=== PATIENT | female | born 1985 | race Hispanic/Latino ===

== ENCOUNTER 2017-01-24 16:40 | Emergency (ER) | payer OTHER ==
[2017-01-24 16:40] VITALS: BMI 39.9
[2017-01-24 16:57] VITALS: BP 140/84; PULSE 100; RESP 18; TEMP 97.8; O2SAT 99
[2017-01-24] MEDS ORDERED: DiphenhydrAMINE 50 mg/ml Inj IVP STA (17:35)
[2017-01-24] MEDS ORDERED: Sodium Chloride 0.9% 1,000 ML IV STA (17:35)
[2017-01-24] MEDS ORDERED: DiphenhydrAMINE 50 mg/ml Inj ONE (18:10)
[2017-01-24 18:16] LABS: BASO # 0.1 K/uL (0.0-0.2); EOS # 0.1 K/uL (0.0-0.7); EOS % 2.6 % (0.0-4.0); HEMATOCRIT 34.2 % (34.0-47.0); LYMPH # 1.9 K/uL (1.0-4.3); LYMPH % 33.5 % (20.0-40.0); MEAN CELL VOLUME 91.6 fl (81.0-99.0); MEAN CORPUSCULAR HEMOGLOBIN 30.3 pg (27.0-31.0); MEAN CORPUSCULAR HGB CONC 33.1 g/dL (33.0-37.0); MEAN PLATELET VOLUME 8.2 fl (7.2-11.7); MONO # 0.5 K/uL (0.0-0.8); MONO % 9.3 % (0.0-10.0); NEUT % 53.6 % (50.0-75.0); RED CELL DISTRIBUTION WIDTH 13.3 % (11.5-14.5); WHITE BLOOD COUNT 5.5 K/uL (4.8-10.8)
[2017-01-24 18:25] LABS: ALB/GLOB RATIO 1.2 (1.0-2.1); ALKALINE PHOSPHATASE 55 U/L (38-126); ALT/SGPT 38 U/L (9-52); AST/SGOT 23 U/L (14-36); BILIRUBIN,TOTAL 0.1 mg/dl (0.2-1.3); BLOOD UREA NITROGEN 10 mg/dl (7-17); CARBON DIOXIDE 27 mmol/L (22-30); CHLORIDE 105 mmol/L (98-107); GFR AFRICAN-AMERICAN > 60; GLUCOSE,RANDOM 91 mg/dL (65-105); POTASSIUM 3.7 MMOL/L (3.6-5.0); SODIUM 138 mmol/l (132-148); TOTAL PROTEIN 6.9 G/DL (6.3-8.2)
--- NOTE | 2017-01-24 18:26 | ED PDOC ---
HPI: Headache Time Seen by Provider: 01/24/17 17:00 Chief Complaint (Nursing): Headache Chief Complaint (Provider): Headache History Per: Patient History/Exam Limitations: no limitations Onset/Duration Of Symptoms: Days (x1) Current Symptoms Are (Timing): Still Present Associated Symptoms: Photophobia, Nausea. denies: Blurred Vision, Vomiting, Extremity Weakness Additional Complaint(s): 32 year old female who presents to the emergency department with a complaint of constant, throbbing headache associated with photophobia and nausea ongoing since 0800 today. Denied vomiting, blurry vision or focal weakness. Patient stated symptoms feel similar to previous migraines in past and that she is also experiencing abnormally heavy vaginal bleeding for the past 6 days. LMP: 12/10/16 PMD: Keyshawn Alves MD Past Medical History Reviewed: Historical Data, Nursing Documentation, Vital Signs Vital Signs: Last Vital Signs Temp 97.8 F 01/24/17 16:54 Pulse 100 H 01/24/17 16:54 Resp 18 01/24/17 16:54 BP 140/84 01/24/17 16:54 Pulse Ox 99 01/24/17 16:54 - Medical History PMH: Anemia, Anxiety, Depression (AT TIMES NO MEDS), Hypercholesterolemia, Hypothyroidism, Migraine Denies: Chronic Kidney Disease - Surgical History Surgical History: (x2) - Family History Family History: States: Hypertension Denies: No Known Family Hx, Unknown Family Hx - Social History Current smoker - smoking cessation education provided: No Alcohol: None Drugs: Denies - Immunization History Hx Tetanus Toxoid Vaccination: No Hx Influenza Vaccination: No Hx Pneumococcal Vaccination: No - Home Medications Home Medications: Ambulatory Orders Medication Instructions Recorded Acetaminophen/Butalbital/Caf 1 tab PO TID PRN #20 tab 03/02/16 [Fioricet] - Allergies Allergies/Adverse Reactions: Allergies Allergy/AdvReac Type Severity Reaction Status Date / Time No Known Allergies Allergy Verified 07/23/16 06:24 Review of Systems ROS Statement: Except As Marked, All Systems Reviewed And Found Negative Eyes: Positive for: Vision Change (photophobia). Negative for: Other (blurry vision) Gastrointestinal: Positive for: Nausea. Negative for: Vomiting Genitourinary Female: Positive for: Vaginal Bleeding (heavy) Neurological: Positive for: Headache. Negative for: Weakness (focal) Physical Exam - Reviewed Nursing Documentation Reviewed: Yes Vital Signs Reviewed: Yes - Physical Exam Appears: Positive for: Non-toxic, In Acute Distress Head Exam: Positive for: ATRAUMATIC, NORMOCEPHALIC Skin: Positive for: Warm, Dry Eye Exam: Positive for: EOMI, PERRL ENT: Negative for: Pharyngeal Erythema, Tonsillar Exudate Neck: Positive for: Painless ROM, Supple Cardiovascular/Chest: Positive for: Regular Rate, Rhythm, Chest Non Tender. Negative for: Murmur Respiratory: Positive for: Normal Breath Sounds. Negative for: Wheezing Gastrointestinal/Abdominal: Positive for: Soft. Negative for: Tenderness, Mass , Distended, Guarding Back: Positive for: Normal Inspection. Negative for: Decreased ROM Extremity: Positive for: Normal ROM. Negative for: Deformity Lymphatic: Negative for: Adenopathy Neurologic/Psych: Positive for: Alert, wet finisher wool II-XII (intact), Oriented (X3), Cerebellar Tests (normal). Negative for: Motor/Sensory Deficits, Aphasia - Laboratory Results Result Diagrams: 01/24/17 18:10 01/24/17 18:10 - ECG O2 Sat by Pulse Oximetry: 99 (RA) Pulse Ox Interpretation: Normal Medical Decision Making Medical Decision Making: Initial Impression: Migraine; abnormal bleeding Differential Diagnosis: Anemia; ; stress-induced migraine; electrolyte abnormality; dehydration Initial Plan: * Type and screen * CMP * Urine * Urine dipstick * CBC * Benadryl 25mg IVP * NS 1,000ml IV per 250mls/hr * Reglan 10mg IVP * Toradol 30mg IVP * Tylenol 975mg PO Time: 1804 --UA: positive for . --US OB Transvag and Beta-HCG ordered. Accession No. 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 no. Patient Name: CASIMIRO PERALTA Pt. Address: [address] [place] [address] Rec #: [id number] [place] [address]: Collins MANLEY, Tanisha Michele Pt Order Location: [facility] : 1985 Female Age: 32 Order #: [id number] Reason for exam: vaginal bleeding Ultrasound OB PREG 1ST TRI OB TRANSVAG Exam Date: 01/24/17 This imaging exam was performed at [facility] ADDENDUM Addendum created by Stew Danielson MD on 01/24/2017 7:55:47 PM EST THIS REPORT CONTAINS FINDINGS THAT MAY BE CRITICAL TO PATIENT CARE. The findings were verbally communicated via telephone conference with Tanisha Palmer at 7:55 PM EST on 01/24/2017. The findings were acknowledged and understood. Initial report created on 01/24/2017 7:49:01 PM EST EXAM: US First Trimester, Transabdominal CLINICAL HISTORY: 32 years old, female; Signs and symptoms; Lmp or gestational age (in weeks): Lmp 12-10-2016; Antepartum complications; Bleeding; ; Prior surgery; Surgery date: 6+ months; Surgery type: ; Additional info: Vaginal bleeding TECHNIQUE: Real-time transabdominal obstetrical ultrasound of the maternal pelvis and a first trimester with image documentation. COMPARISON: No relevant prior studies available. FINDINGS: Gestation: No intrauterine gestational sac. Uterus/cervix: Endometrium: Up to 2.8 cm in thickness, heterogeneous. Closed cervix. Ovaries: LEFT ovary: Normal. 2.1 x 1.6 x 1.8 cm thickwalled hypoechoic lesion within or just adjacent to RIGHT ovary. Free fluid: Small free fluid within pelvis. IMPRESSION: 1. No intrauterine gestation. DDX: Early IUP, missed , ectopic . 2. RIGHT adnexal lesion, indeterminate. Ectopic not excluded. 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 pt to return Thursday morning for repeat betahcg and repeat abdominal exam. Also advised to return to ER immediately for pain. DW pt findings. On reeval pt feels better. Headache resolved. Scribe Attestation: Documented by Lizzie Rubio, acting as a scribe for Tanisha Guadalupe MD. Provider Scribe Attestation: All medical record entries made by the Scribe were at my direction and personally dictated by me. I have reviewed the chart and agree that the record accurately reflects my personal performance of the history, physical exam, medical decision making, and the department course for this patient. I have also personally directed, reviewed, and agree with the discharge instructions and disposition. Disposition - Clinical Impression Clinical Impression: Migraine Counseled Patient/Family Regarding: Studies Performed, Diagnosis, Need For Followup - Disposition Disposition: Routine/Home Disposition Time: 21:00 Condition: IMPROVED Instructions: Spontaneous Miscarriage (ED), Migraine Headache (ED) Forms: [facility] ED School/Work Excuse
--- NOTE | 2017-01-24 19:49 | US ---
EXAM: US First Trimester, Transabdominal CLINICAL HISTORY: 32 years old, female; Signs and symptoms; Lmp or gestational age (in weeks): Lmp 12-10-2016; Antepartum complications; Bleeding; ; Prior surgery; Surgery date: 6+ months; Surgery type: ; Additional info: Vaginal bleeding TECHNIQUE: Real-time transabdominal obstetrical ultrasound of the maternal pelvis and a first trimester with image documentation. COMPARISON: No relevant prior studies available. FINDINGS: Gestation: No intrauterine gestational sac. Uterus/cervix: Endometrium: Up to 2.8 cm in thickness, heterogeneous. Closed cervix. Ovaries: LEFT ovary: Normal. 2.1 x 1.6 x 1.8 cm thickwalled hypoechoic lesion within or just adjacent to RIGHT ovary. Free fluid: Small free fluid within pelvis. IMPRESSION: 1. No intrauterine gestation. DDX: Early IUP, missed , ectopic . 2. RIGHT adnexal lesion, indeterminate. Ectopic not excluded. EXAM: US , Transvaginal CLINICAL HISTORY: 32 years old, female; Signs and symptoms; Lmp or gestational age (in weeks): Lmp 12-10-2016; Antepartum complications; Bleeding; ; Prior surgery; Surgery date: 6+ months; Surgery type: ; Additional info: Vaginal bleeding TECHNIQUE: Real-time transvaginal obstetrical ultrasound of the maternal pelvis and a first trimester with image documentation. Transvaginal imaging was used for better evaluation of the fetus and adnexa. COMPARISON: No relevant prior studies available. FINDINGS: Gestation: No intrauterine gestational sac. Uterus/cervix: Endometrium: Up to 2.8 cm in thickness, heterogeneous. Closed cervix. Ovaries: LEFT ovary: Normal. 2.1 x 1.6 x 1.8 cm thickwalled hypoechoic lesion within or just adjacent to RIGHT ovary. Free fluid: Small free fluid within pelvis.
== END 2017-01-24 21:34 | disposition home or self-care (01) ==
LOC: H.ER 16:40
DX: G43.909 Migraine, unspecified, not intractable, without status migrainosus (principal); F32.9 Major depressive disorder, single episode, unspecified; F41.9 Anxiety disorder, unspecified; N93.9 Abnormal uterine and vaginal bleeding, unspecified; O46.90 Antepartum hemorrhage, unspecified, unspecified trimester
CPT/HCPCS: 76815; 76817; 80053; 81025; 84702; 85025; 86850; 86900; 96361; 96374; 96375; 99284; J1200; J2765; J7040